=== PATIENT | female | born 1945 | race Caucasian/White ===

== ENCOUNTER 2020-03-08 10:00 | Emergency (ER) | payer MEDICARE ==
[2020-03-08 11:13] LABS: HEMOGLOBIN 13.7 gm/dl (12.3-15.3); RED BLOOD COUNT 4.25 M/UL (4.00-5.10); WHITE BLOOD COUNT 5.4 K/UL (4.5-11.0)
[2020-03-08 11:44] LABS: BUN/CREATININE RATIO 21 (0-10)
[2020-03-08] MEDS ORDERED: VALTREX1000 MG PO (15:21)
[2020-03-08] MEDS ORDERED: PREDNISONE20 MG PO (15:21)
== END 2020-03-08 15:32 | disposition home or self-care (01) ==
LOC: ER1 10:00
PROVIDERS: Family Medicine
DX: G51.0 Bell's palsy (principal); I10 Essential (primary) hypertension; Z88.1 Allergy status to other antibiotic agents
CPT/HCPCS: 70496; 70498; 71045; 80053; 82550; 82553; 82962; 83874; 84484; 85025; 85610; 93005; 99284; J7030; Q9967